=== PATIENT | female | born 1945 | race Two or more races ===

== ENCOUNTER → 2019-06-20 | Outpatient (CLI) | payer OTHER | END | disposition home or self-care (01) | LOC: SONOGRAMA 12:05 | DX: C50.411 Malignant neoplasm of upper-outer quadrant of right female breast (principal); N60.11 Diffuse cystic mastopathy of right breast; N60.12 Diffuse cystic mastopathy of left breast ==

== ENCOUNTER 2019-09-02 09:00 | Inpatient (IN) | payer OTHER ==
[~2019-09-02] VITALS: Ht 154.9 cm; Wt 83.9 kg
[2019-09-02] MEDS ORDERED: SYNTHROID75 MCG PO (10:31)
[2019-09-02] MEDS ORDERED: CALAN PO (10:31)
[2019-09-02] MEDS ORDERED: ZERTEC PO (10:32)
[2019-09-05] MEDS ORDERED: VERAPAMIL ER240 MG PO (09:18)
[2019-09-05] MEDS ORDERED: ANASTROZOLE1 MG PO (09:19)
[2019-09-05] MEDS ORDERED: ALLER-TEC10 MG PO (09:20)
== END 2019-09-06 15:56 | disposition home or self-care (01) | DRG 580 ==
LOC: O/R 09-05 06:36 → SURG 09-05 06:36 → SURH 09-05 09:00 → SURG 09-05 17:25 → SURH 09-05 19:45 → SURG 09-06 15:56
PROVIDERS: ADMIT Surgery
PROC: 0HBT0ZZ Excision of Right Breast, Open Approach (ICD-10-PCS; 2019-09-05)
PROC: 07B50ZX Excision of Right Axillary Lymphatic, Open Approach, Diagnostic (ICD-10-PCS; principal; 2019-09-05 19:45)
DX: C50.111 Malignant neoplasm of central portion of right female breast (principal); C77.3 Secondary and unspecified malignant neoplasm of axilla and upper limb lymph nodes; Z17.0 Estrogen receptor positive status [ER+]

== ENCOUNTER 2025-04-03 17:57 | Inpatient (IN) | payer OTHER ==
[~2025-04-03] VITALS: Ht 152.4 cm; Wt 52.6 kg
[~2025-04-03 17:57] MED LIST: ALLER-TEC10 MG PO; ANASTROZOLE1 MG PO; CALAN PO; SYNTHROID75 MCG PO; VERAPAMIL ER240 MG PO; ZERTEC PO
[2025-04-03] MEDS ORDERED: 0.9 % SODIUM CHLORIDE 1,000 ML IV SCH (19:30)
[2025-04-03 20:01] LABS: BASO % 0.1 % (0.1-1.2); EOS # 0.03 (0.04-0.54); EOS % 0.4 % (0.7-7.0); LYMPH # 1.15 (1.18-3.74); LYMPH % 15.0 % (19.3-53.1); MEAN PLATELET VOLUME 9.60 fl (9.4-12.4); MONO # 0.49 (0.24-0.82); MONO % 6.4 % (4.7-12.5); NEUT # 5.68 (1.56-6.13); NEUT % 74.2 % (34.0-71.1); RED CELL DISTRIBUTION WIDTH 16.1 % (11.6-14.4)
[2025-04-03 20:27] LABS: EOSINOPHIL MAN 1.0 %; LYMPHOCYTE MAN 9.0 %; MONOCYTE MAN 4.0 %; NEUTROPHILS MAN 85.0 %
[2025-04-03 20:29] LABS: ALT/SGPT 37.0 U/L (12-78); AST/SGOT 209.0 U/L (15-37); BILIRUBIN TOTAL 0.58 mg/dL (0.3-1.2); BILIRUBIN,CONJUGATED 0.27 mg/dL (0.0-0.2); BUN CREA RATIO 13.0 (7.0-25.0); CREATININE SERUM 1.3 mg/dL (0.55-1.02); GFR 39.72; GLOBULINA 4.8 G/DL (2.4-3.5); GLUCOSE FASTING 101.0 mg/dL (65-100); OSMOLALITY SERUM 277.0 MOSM/KG (275-295)
[2025-04-03 21:30] LABS: URINE APPEARANCE Clear; URINE BILIRRUBIN Negative (NEGATIVE); URINE BLOOD Trace; URINE COLOR Yellow; URINE GLUCOSE Negative (NEGATIVE); URINE KETONE Negative (NEGATIVE); URINE LEUKOCYTE Trace; URINE NITRATE Negative; URINE PROTEIN Negative (NEGATIVE); URINE UROBILINOGEN 0.2 E.U./dl
[2025-04-03 21:31] LABS: URINE BACTERIA 17.9 uL (0.0-1933); URINE EPITHELIAL CELLS 2.1 uL (0.0-38.8); URINE RBC 12.7 uL (0.0-20.8); URINE WBC 7.2 uL (0.0-23.2)
[2025-04-03 21:34] LABS: URINE CAST 0.29 uL (0.0-1.40)
[2025-04-03] MEDS ORDERED: PANTOPRAZOLE SODIUM 40 MG/VIAL VIAL IV SCH (23:01)
[2025-04-03] MEDS ORDERED: LACTULOSE 20 G/30 ML BLIST.PACK PO SCH (23:01)
[2025-04-03] MEDS ORDERED: POTASSIUM CHLORIDE 20MEQ/100ML H2O PB IV ONE (23:15)
[2025-04-03] MEDS ORDERED: ONDANSETRON HCL 4 MG in 0.9 % SODIUM CHLORIDE 50 ML IV PRN (23:15)
[2025-04-03] MEDS ORDERED: POLYETHYLENE GLYCOL 3350 17 GM BLIST.PACK PO ONE (23:15)
[2025-04-04 00:01] LABS: ABG PH 7.501 (7.35-7.45); ABG PO2 70.1 mmHg (80-100); BICARBONATE 27.7 mmol/l (23-25)
[2025-04-04 00:58] VITALS: BP 146/87; O2SAT 96
[2025-04-04 01:00] VITALS: BP 146/87
[2025-04-04 01:02] LABS: o2 21 %
[2025-04-04 01:40] LABS: INR 1.13
[2025-04-04] MEDS ORDERED: AMINO ACIDS/PROTEIN HYDROLYS 30 ML BLIST.PACK PO SCH (09:00)
[2025-04-04 09:25] VITALS: BP 135/83
[2025-04-04 15:39] LABS: BUN CREA RATIO 14.0 (7.0-25.0); CREATININE SERUM 1.25 mg/dL (0.55-1.02); GFR 41.56; GLUCOSE FASTING 103.0 mg/dL (65-100); OSMOLALITY SERUM 291.0 MOSM/KG (275-295)
[2025-04-04 15:50] LABS: TSH 39.3 uIU/mL (0.358-3.74)
[2025-04-04 16:48] VITALS: BP 156/100
[2025-04-04 20:10] VITALS: BP 137/87
[2025-04-05 00:45] VITALS: BP 115/76; O2SAT 95
[2025-04-05] MEDS ORDERED: POTASSIUM CHLORIDE 20MEQ/100ML H2O PB IV NR (09:00)
[2025-04-05 09:01] VITALS: BP 134/80
[2025-04-05] MEDS ORDERED: ENOXAPARIN SODIUM 30 MG/0.3 ML SYRINGE SUBCUTANEO NR (10:30)
[2025-04-05 15:31] LABS: BUN CREA RATIO 16.0 (7.0-25.0); CREATININE SERUM 1.24 mg/dL (0.55-1.02); GFR 41.94; GLUCOSE FASTING 134.0 mg/dL (65-100); OSMOLALITY SERUM 291.0 MOSM/KG (275-295)
[2025-04-05] MEDS ORDERED: ACETAMINOPHEN 500 MG GEL..CAP PO PRN (18:00)
[2025-04-05 18:14] VITALS: BP 116/75
[2025-04-05 19:40] VITALS: BP 114/76
[2025-04-06 00:54] VITALS: BP 118/72; O2SAT 98
[2025-04-06 02:06] LABS: CREATININE URINE RANDOM < 13.00 MG/DL (30-125)
[2025-04-06 02:07] LABS: K URINE RAMDON 13.66 mmol/L (25-150)
[2025-04-06 06:17] LABS: BASO % 0.2 % (0.1-1.2); EOS # 0.17 (0.04-0.54); EOS % 1.9 % (0.7-7.0); LYMPH # 1.66 (1.18-3.74); LYMPH % 18.1 % (19.3-53.1); MEAN PLATELET VOLUME 10.00 fl (9.4-12.4); MONO # 0.51 (0.24-0.82); MONO % 5.6 % (4.7-12.5); NEUT # 6.66 (1.56-6.13); NEUT % 72.5 % (34.0-71.1); RED CELL DISTRIBUTION WIDTH 16.3 % (11.6-14.4)
[2025-04-06 08:14] VITALS: BP 136/83
[2025-04-06] MEDS ORDERED: ENOXAPARIN SODIUM 30 MG/0.3 ML SYRINGE SUBCUTANEO SCH (09:00)
[2025-04-06 09:29] LABS: GLUCOSE FASTING 81.0 mg/dL (65-100)
[2025-04-06 09:30] LABS: BUN CREA RATIO 17.0 (7.0-25.0); CREATININE SERUM 1.22 mg/dL (0.55-1.02); GFR 42.74; OSMOLALITY SERUM 291.0 MOSM/KG (275-295)
[2025-04-06] MEDS ORDERED: POTASSIUM CHLORIDE IN WATER 40 MEQ/100 ML PIGGYBAG IV NR (13:00)
[2025-04-06] MEDS ORDERED: VITAMIN B COMPLEX/LYSINE 15 ML BLIST.PACK PO SCH (17:00)
[2025-04-06 19:12] VITALS: BP 137/87; O2SAT 97
[2025-04-06 19:47] LABS: MONONUCLEAR 90.3 %; POLYMORPHONUCLEAR 9.7 %
[2025-04-06 19:48] LABS: GLU PLEURAL FLUID 111.0 mg/dl; LDH PLEURAL FLUID 98.0 U/L; TP PLEURAL FLUID 3.2 g/dl
[2025-04-07 00:44] VITALS: BP 89/60; O2SAT 94
[2025-04-07 03:24] VITALS: BP 128/79; O2SAT 92
[2025-04-07 08:55] LABS: BUN CREA RATIO 16.0 (7.0-25.0); CREATININE SERUM 1.46 mg/dL (0.55-1.02); GFR 34.74; GLUCOSE FASTING 145.0 mg/dL (65-100); OSMOLALITY SERUM 289.0 MOSM/KG (275-295)
[2025-04-07 08:56] VITALS: BP 143/82; O2SAT 95
[2025-04-07] MEDS ORDERED: MORPHINE SULFATE 2 MG/ML CARTRIDGE IV PRN (09:30)
[2025-04-07] MEDS ORDERED: 0.9 % SODIUM CHLORIDE 1,000 ML IV SCH (09:30)
[2025-04-07 09:42] LABS: CREATINE CLEARANCE 12.3 ML/MIN (97-137); CREATININE SERUM 1.27 mg/dL (0.6-1.0)
[2025-04-07] MEDS ORDERED: MAGNESIUM SULFATE IN WATER 50 ML IV NR (10:15)
[2025-04-07] MEDS ORDERED: OxyCODONE HCL 5 MG TABLET (ROXICODONE) PO PRN (10:30)
[2025-04-07] MEDS ORDERED: POTASSIUM CHLORIDE IN WATER 100 ML IV NR (12:00)
[2025-04-07 17:22] VITALS: BP 134/81; O2SAT 97
[2025-04-07] MEDS ORDERED: SPIRONOLACTONE 25 MG TABLET PO SCH (18:47)
[2025-04-07] MEDS ORDERED: fentaNYL CITRATE 50 MCG/ML AMPUL IV PUSH ONE (21:30)
[2025-04-08 02:25] VITALS: BP 94/61; O2SAT 97
[2025-04-08 07:11] LABS: ALT/SGPT 190.0 U/L (12-78); AST/SGOT 1520.0 U/L (15-37); BILIRUBIN TOTAL 0.71 mg/dL (0.3-1.2); BUN CREA RATIO 18.0 (7.0-25.0); CREATININE SERUM 1.76 mg/dL (0.55-1.02); GFR 28.0; GLOBULINA 3.6 G/DL (2.4-3.5); GLUCOSE FASTING 105.0 mg/dL (65-100); OSMOLALITY SERUM 285.0 MOSM/KG (275-295)
[2025-04-08 09:05] VITALS: BP 127/72
[2025-04-09] MEDS ORDERED: PANTOPRAZOLE SODIUM 40 MG TABLET.DR PO SCH (09:00)
== END 2025-04-08 16:54 | disposition home or self-care (01) | DRG 598 ==
LOC: ER 17:57 → MEDI 23:09 → ER 04-04 00:11 → MEDI 04-08 16:54
PROVIDERS: General Practice; Internal Medicine Nephrology; Radiology Vascular & Interventional Radiology; ADMIT Student in an Organized Health Care Education/Training Program; ATTEND Student in an Organized Health Care Education/Training Program
PROC: BW25ZZZ Computerized Tomography (CT Scan) of Chest, Abdomen and Pelvis (ICD-10-PCS; principal; 2025-04-03)
PROC: B020ZZZ Computerized Tomography (CT Scan) of Brain (ICD-10-PCS; 2025-04-03)
PROC: B246ZZZ Ultrasonography of Right and Left Heart (ICD-10-PCS; 2025-04-04)
PROC: 0W9B3ZZ Drainage of Left Pleural Cavity, Percutaneous Approach (ICD-10-PCS; 2025-04-06)
PROC: 0W993ZZ Drainage of Right Pleural Cavity, Percutaneous Approach (ICD-10-PCS; 2025-04-07)
PROC: 0FB23ZX Excision of Left Lobe Liver, Percutaneous Approach, Diagnostic (ICD-10-PCS; 2025-04-07)
DX: C50.919 Malignant neoplasm of unspecified site of unspecified female breast (principal); C78.7 Secondary malignant neoplasm of liver and intrahepatic bile duct; J91.8 Pleural effusion in other conditions classified elsewhere; Z74.01 Bed confinement status; K76.82 Hepatic encephalopathy; R60.0 Localized edema